=== PATIENT | female | born 1985 | race Caucasian/White ===

== ENCOUNTER 2016-12-06 07:51 | Emergency (ER) | payer OTHER ==
[2016-12-06 08:07] VITALS: BP 136/94
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
== END 2016-12-06 08:55 | disposition home or self-care (01) ==
LOC: ER 07:51
DX: M26.602 Left temporomandibular joint disorder, unspecified (principal); J06.9 Acute upper respiratory infection, unspecified; B97.89 Other viral agents as the cause of diseases classified elsewhere; F17.210 Nicotine dependence, cigarettes, uncomplicated

== ENCOUNTER 2017-02-26 13:26 | Emergency (ER) | payer OTHER ==
[2017-02-26 13:34] VITALS: BP 133/77
[2017-02-26] MEDS ORDERED: ALBUTEROL SULFATE/IPRATROPIUM 3 ML NEBU IH ONE ×2 (13:48→13:50)
--- NOTE | 2017-02-26 13:55 | ERNOTE ---
Date of Service: 02/26/17 Time Seen by Provider: 02/26/17 13:36 Stated Complaint: TROUBLE BREATHING Presenting Symptoms:: cough Source: patient, RN notes reviewed, past records Exam Limitations: no limitations Immunizations: IMMUNIZATION HX Immunizations Up to Date Yes History of Influenza Vaccine Yes Hx Pneumococcal Vaccination No Allergies/Adverse Reactions: Allergies morphine Allergy (Severe, Verified 02/26/17 13:34) Anaphylaxis tramadol Allergy (Verified 02/26/17 13:34) Vomiting Home Medications: HOME MEDICATIONS HYDROcodone/ACETAMINOPHEN [[place] 5-325] 1 tab PO Q4H PRN #30 tab 12/06/16 [Last Taken Unknown] Norgestimate-Ethinyl Estradiol [Trinessa Lo Tablet] 1 each PO DAILY 12/06/16 [ Last Taken Unknown] Albuterol Sulfate 2.5 mg IH Q4H PRN #40 vial.neb 02/26/17 [Last Taken Unknown] Promethazine HCl/Codeine [Prometh-Codein 6.25-10 mg/5 ml] 5 ml PO Q4H PRN #120 ml 02/26/17 [Last Taken Unknown] predniSONE [Prednisone] 2 tab PO DAILY #14 tab 02/26/17 [Last Taken Unknown] - History of Present Ilness Narrative: 31 y/o female ambulatory to the ED for a cough and increasing dyspnea. Her symptoms began about a week and a half ago. She was seen in the clinic on and started on doxycycline for rhinosinusitis and bronchitis. She feels like she has been getting worse since then. She has been taking Nyquil at night. She reports having to use her son's albuterol nebulizer when she started feeling really short of breath. This did seem to help. She denies any fevers. Timing: getting worse Frequency/Possible Cause: Reports: unknown cause Modifying Factors - Improves: Reports: albuterol. Denies: rest, lying down Modifying Factors - Worsens: Denies: activity, coughing, lying down Associated Symptoms: Reports: cough, shortness of breath, wheezing, nasal congestion, nasal drainage, headache. Denies: chest pain/soreness, facial pain , dizziness, lightheadedness, earache, sore throat, fever/chills Prior Treatment: Reports: recently seen, currently on antibiotics Review of Systems - Review of Systems Constitutional: Present: See HPI EYE: Present: no symptoms reported ENT: Present: See HPI Respiratory: Present: See HPI Cardiology: Absent: palpitations, edema Gastrointestinal/Abdominal: Absent: nausea, vomiting, abdominal pain Genitourinary: Absent: other - possible Musculoskeletal: Absent: back pain, muscle pain Skin: Absent: rash, lesions Neurological: Present: headache. Absent: dizziness/light-headedness Endocrine: Present: no symptoms reported Hematologic/Lymphatic: Present: no symptoms reported Psych: Present: no symptoms reported - Patient's Past Medical History Patient History - Medical: Chronic Pain, Other Patient History - Cardiac/Respiratory: No pertinent hx Patient History - Cancer: No Hx of Cancer Patient History - Surgical Procedures: Back Surgery, Other Patient History - Other: None LMP (Calendar): 02/01/17 - Social History Living Situations: home Abuse History: No History of abuse Psych History: No pertinent hx Smoking Status: Current every day smoker Cigarettes Packs Per Day: 0.3 Alcohol Use: none Drug Use: none - Immunizations Immunizations Up to Date: Yes Hx Pneumococcal Vaccination: No History of Influenza Vaccine: Yes Physical Exam - Physical Exam General Appearance: Present: wd/wn, alert, no apparent distress Eye Exam: Normal inspection: bilateral Ears, Nose, Throat: Present: nasal congestion. Absent: abnormal TM (R), abnormal TM (L), sinus pain/drainage, pharyngeal erythema Neck: Present: normal inspection, nontender, supple Respiratory: Present: no respiratory distress, no accessory muscle use, expiration (prolonged), wheezing Cardiovascular/Chest: Present: regular rate, rhythm, no murmur Extremity Exam: Present: normal inspection, no edema Neurological Exam: Present: alert, oriented, normal mood/affect, no motor/ sensory deficits Skin Exam: Present: normal color, warm/dry ED Progress - Results and Orders Patient's Lab Results:: I have reviewed the patient's lab results. - Vital Signs Patient's Vital Signs:: I have reviewed the patient's vital signs. Vital Signs: Vital Signs 02/26/17 13:29 Temperature 36.5 C Pulse Rate 96 Respiratory 12 Rate Blood Pressure 133/77 O2 Sat by Pulse 100 Oximetry - X-Ray X-Ray #1 X-Ray: chest Interpretation: Reviewed by me X-ray Comments: No acute cardiopulmonary process noted - Progress/Reassessment Chief Complaint: Upper Respiratory Symptoms Progress:: Improved Departure - Departure Clinical Impression: Wheezing without diagnosis of asthma Bronchitis, acute Qualifiers: Bronchitis organism: unspecified organism Qualified Code(s): J20.9 - Acute bronchitis, unspecified Disposition: Home self-care Condition: Stable Instructions: Form - Excuse from Work, School, or Physical Activity, Acute Bronchitis Prescriptions: Albuterol Sulfate 2.5 mg IH Q4H PRN #40 vial.neb PRN Reason: Wheezing Promethazine HCl/Codeine [Prometh-Codein 6.25-10 mg/5 ml] 5 ml PO Q4H PRN #120 ml PRN Reason: Cough predniSONE [Prednisone] 2 tab PO DAILY #14 tab
--- OUTSIDE RECORDS SUMMARY | 2017-02-26 14:39 | XMS REPORT | Continuity of Care Document ---
:1985 Author Organization [facility] ([facility]) Address [address] [place] [address] Phone [phone] Care Team Providers Name Role Phone Provider, No-Primary Care Primary Care Provider Unavailable Source Comments This disclosure is being made pursuant to the Care Everywhere program, applicable federal and state laws, and may not contain all informaitonavailable regarding this patient.[facility] ([facility]) Active Allergies and Adverse Reactions Allergen Noted Date Severity Reactions Comments Morphine 02/03/2013 Urticaria (Hives),Angioedema Current Medications Prescription Sig. Disp. Refills Start Date End Date Status IBUPROFEN (IBU-200 PO) Take by mouth. Active HYDROcodone-acetaminophen Take 1 Tab by Active (VICODIN) 5-500 mg per mouth every 6 tablet hours as needed. multivitamins w/ minerals Take 1 Tab by Active (CENTRUM SILVER ULTRA mouth daily. WOMEN'S) tablet multivitamin with Take 1 Tab by Active minerals tablet mouth daily. ACETAMINOPHEN (TYLENOL Take 1,000 mg by Active EXTRA STRENGTH PO) mouth. Active Problems Currently Estimated Date of Delivery Comments Yes No additional problems on file Social History Tobacco Use Types Packs/Day Years Used Date Current Every Day Smoker Cigarettes 0.25 8 Smokeless Tobacco: Never Used Tobacco Cessation:Ready to Quit: Yes Comments:trying to quit Last Filed Vital Signs Vital Sign Reading Time Taken Blood Pressure 127/76 03/08/2013 9:30 AM CDT Pulse 95 03/08/2013 9:30 AM CDT Temperature 36.8 C (98.2 F) 03/08/2013 8:12 AM CDT Respiratory Rate 17 03/08/2013 8:17 AM CDT Height 1.88 m (6' 2") 03/08/2013 8:17 AM CDT Weight 65.772 kg (145 lb) 03/08/2013 8:17 AM CDT Body Mass Index 18.61 03/08/2013 8:17 AM CDT Oxygen Saturation - - Plan of Care Health Maintenance Due Date Last Done Comments Hepatitis B Vaccine (1 of 3 - Primary Series) 1987 Tdap Vaccine 1998 Cervical Cancer Screening 2005 Lipid Disorder Screening 2005 MMR Vaccine 2005 Td Vaccine 2005 Varicella Vaccine (1 of 2 - Adult - No Evidence of 2005 Immunity) Pneumococcal Vaccine (1 of 1 - PPSV23) 2006 Influenza Vaccine: Seasonal (#1) 06/03/2016 Results from Last 3 Months Not on file
== END 2017-02-26 14:25 | disposition home or self-care (01) ==
LOC: ER 13:26
DX: J20.9 Acute bronchitis, unspecified (principal); R06.2 Wheezing; F17.210 Nicotine dependence, cigarettes, uncomplicated

== ENCOUNTER 2017-04-01 16:30 | Emergency (ER) | payer OTHER ==
[2017-04-01 16:50] LABS: Hematocrit 38.1 % (37.0-47.0); Mean Cell Volume 92.7 fl (78-100); Mean Corpuscular Hemoglobin 31.6 pg (27-31); Mean Corpuscular Hgb Conc 34.1 g/dl (32-36); Mean Platelet Volume 9.9 fl (6.0-9.5); Platelet Count 230 K/mm3 (150-450); Red Blood Count 4.11 M/mm3 (4.2-5.4); Red Cell Distribution Width 12.6 % (11.5-14.0); White Blood Count 25.9 K/mm3 (4.0-10.5)
[2017-04-01 16:55] LABS: Total Cells Counted 100
[2017-04-01 17:02] LABS: Atypical (Reactive) Lymph 2 % (0-2); Lymphocyte 7 % (20-51); Monocyte 1 % (0-9); Neutrophil 90 % (42-75); Neutrophil # 23.3 K/mm3 (1.3-6.0); Platelet Estimate Normal (NORMAL); RBC Morphology Normal (NORMAL)
[2017-04-01] MEDS ORDERED: HYDROcodone/ACETAMINOPHEN 1 EACH TABLET PO ONE ×2 (18:47→20:14)
[2017-04-01 19:00] LABS: Albumin * 3.4 gm/dl (3.4-5.0); Anion Gap 13.1 mmol/L (6.8-13.8); BUN/Creatinine Ratio 7.7 (9.0-21.6); Bilirubin, Total 0.6 mg/dL (0.0-1.1); Ca. Corrected For Albumin 8.7 mg/dL (8.4-10.2); Calcium * 8.5 mg/dL (7.9-10.9); Carbon Dioxide 27.2 mmol/L (24-32.6); Potassium 3.3 mmol/L (3.4-4.6); Total Protein 7.5 gm/dL (6.2-8.2)
[2017-04-01] MEDS ORDERED: HYDROcodone/ACETAMINOPHEN 1 EACH TABLET ONE ×2 (19:00→20:18)
[2017-04-01 19:46] LABS: Urine Bilirubin Negative (NEGATIVE); Urine Blood 25 /ul (NEGATIVE); Urine Ketone Negative (NEGATIVE); Urine Nitrite Negative (NEGATIVE); Urine Protein Negative (NEGATIVE); Urine Specific Gravity <=1.005 SP.GR. (1.005-1.010); Urine Urobilinogen Normal (NORMAL); Urine pH 6.5 pH (5.0-7.0)
--- NOTE | 2017-04-01 19:46 | ERNOTE ---
ER Female HPI Date of Service: 04/01/17 Stated Complaint: POSS KIDNEY STONE Presenting Symptoms: other - Flank pain Time Seen by Provider: 04/01/17 18:37 Source: patient, RN notes reviewed, past records Exam Limitations: no limitations Immunizations: IMMUNIZATION HX Immunizations Up to Date Yes History of Influenza Vaccine No Hx Pneumococcal Vaccination No Allergies/Adverse Reactions: Allergies morphine Allergy (Severe, Verified 04/01/17 16:37) Anaphylaxis tramadol Allergy (Verified 04/01/17 16:37) Vomiting Home Medications: HOME MEDICATIONS Norgestimate-Ethinyl Estradiol [Trinessa Lo Tablet] 1 each PO DAILY 12/06/16 [ Last Taken Unknown] Ciprofloxacin HCl [Cipro] 500 mg PO BID #20 tablet 04/01/17 [Last Taken Unknown] HYDROcodone/ACETAMINOPHEN [[place] 5-325] 1 - 2 tab PO Q6H PRN #16 tab 04/01/17 [ Last Taken Unknown] Ondansetron [Zofran Odt] 8 mg PO Q8H PRN #12 tab 04/01/17 [Last Taken Unknown] - History of Present Illness Narrative: 31 y/o female sent to the ED from the walk-in clinic for a possible kidney stone. She has been having bilateral flank pain for the past 2 days and was found to have blood in her urine in the clinic. She also reports having chills and nausea. She has not had any urinary symptoms, but did notice that her urine looked darker than usual. She has been taking leftover [place] for pain. Timing: Present: constant Quality: Present: aching Onset Location: Present: right flank, left flank Radiation: Present: none Activities at Onset: Present: none Prior Abdominal Problems: Present: similar symptoms - Hx pyelonephritis Associated Symptoms: Present: fever/chills, nausea, low back pain. Absent: diaphoresis, vomiting, abdominal pain, dysuria, urinary frequency Prior Treatment: Present: recently seen Review of Systems - Review of Systems Constitutional: Present: recent illness, fever, chills, malaise EYE: Present: no symptoms reported ENT: Absent: ear pain, nose congestion, sore throat Respiratory: Present: cough. Absent: shortness of breath, wheezing Cardiology: Absent: chest pain, palpitations Gastrointestinal/Abdominal: Present: nausea, eating less, drinking less. Absent : vomiting, diarrhea, abdominal pain Genitourinary: Absent: frequency, dysuria, discharge Musculoskeletal: Present: back pain. Absent: joint pain Skin: Absent: rash, lesions, lumps Neurological: Present: headache. Absent: dizziness/light-headedness Endocrine: Present: no symptoms reported Hematologic/Lymphatic: Present: no symptoms reported Psych: Present: no symptoms reported - Patient's Past Medical History Patient History - Medical: Chronic Pain Patient History - Cardiac/Respiratory: No pertinent hx Patient History - Cancer: No Hx of Cancer Patient History - Surgical Procedures: Back Surgery, Other Patient History - Other: None LMP (females 10-50): 3 weeks LMP (Calendar): 03/03/17 - Social History Living Situations: home Abuse History: No History of abuse Psych History: No pertinent hx Smoking Status: Current every day smoker Alcohol Use: none Drug Use: none - Immunizations Immunizations Up to Date: Yes Hx Pneumococcal Vaccination: No History of Influenza Vaccine: No Physical Exam - Physical Exam General Appearance: Present: wd/wn, alert, no apparent distress Neck: Present: normal inspection, nontender, supple, full range of motion Respiratory: Present: no respiratory distress, normal breath sounds, no accessory muscle use, lungs clear Cardiovascular/Chest: Present: no murmur, normal peripheral pulses, tachycardia Gastrointestinal/Abdominal: Present: normal bowel sounds, nontender, nondistended, soft. Absent: rebound, mass Back Exam: Present: no vertebral tenderness, CVA tenderness (R), CVA tenderness (L), decreased range of motion Extremity Exam: Present: normal inspection, normal range of motion, no edema Neurological Exam: Present: alert, oriented, normal mood/affect, no motor/ sensory deficits Skin Exam: Present: normal color, warm/dry Lymphatic Exam: Present: no adenopathy ED Progress - Results and Orders Patient's Lab Results:: I have reviewed the patient's lab results. - Vital Signs Patient's Vital Signs:: I have reviewed the patient's vital signs. Vital Signs: Vital Signs 04/01/17 04/01/17 16:34 19:31 Temperature 37.8 C H Pulse Rate 121 H 107 H Respiratory 17 16 Rate Blood Pressure 126/75 145/75 O2 Sat by Pulse 100 95 Oximetry - Progress/Reassessment Chief Complaint: Genitourinary Problem Progress:: Unchanged Plan - Plan Plan: Urine remarkable only for blood on dip but not on micro. WBC elevated at 25.9 and patient is febrile. Was on a steroid approximately a month ago but unlikely her leukocytosis is d/t this. Reports an occasional ongoing cough after she was treated for bronchitis but it is not frequent or persistent. Abdomen is benign. Will treat for pyelonephritis d/t fever and flank pain. Discussed short term f/ u for lack of improvement, patient in agreement with plan. Departure Clinical Impression: Flank pain, acute Fever Qualifiers: Fever type: unspecified Qualified Code(s): R50.9 - Fever, unspecified - Departure Disposition: Home Follow Up Needed Condition: Stable Instructions: Pyelonephritis, Adult, Form - Excuse from Work, School, or Physical Activity Additional Instructions: Push fluids Rest Tylenol (if not taking [place]) and/or ibuprofen for fever Return for new or worsening symptoms Referrals: Juli Corona [Primary Care Provider] - Prescriptions: Ciprofloxacin HCl [Cipro] 500 mg PO BID #20 tablet HYDROcodone/ACETAMINOPHEN [[place] 5-325] 1 - 2 tab PO Q6H PRN #16 tab PRN Reason: Pain Ondansetron [Zofran Odt] 8 mg PO Q8H PRN #12 tab PRN Reason: Nausea
[2017-04-01 19:47] LABS: Urine Appearance Clear; Urine Bacteria None Seen; Urine Color Yellow; Urine RBC None Seen /hpf (0-5); Urine WBC None Seen /hpf (0-5)
[2017-04-01] MEDS ORDERED: ONDANSETRON 4 MG TAB.RAPDIS PO ONE (20:14)
[2017-04-01] MEDS ORDERED: CIPROFLOXACIN HCL 250 MG TABLET PO ONE (20:14)
[2017-04-01 20:16] VITALS: BP 138/82
[2017-04-01] MEDS ORDERED: ONDANSETRON HCL 8 MG TABLET ONE (20:19)
[2017-04-01] MEDS ORDERED: CIPROFLOXACIN HCL 250 MG TABLET ONE (20:19)
--- OUTSIDE RECORDS SUMMARY | 2017-04-02 11:10 | XMS REPORT | Continuity of Care Document ---
:1985 Author Organization [facility] ([facility]) Address [address] [place] [address] Phone [phone] Care Team Providers Name Role Phone Provider, No-Primary Care Primary Care Provider Unavailable Source Comments This disclosure is being made pursuant to the Care Everywhere program, applicable federal and state laws, and may not contain all informaitonavailable regarding this patient.[facility] ([facility]) Active Allergies and Adverse Reactions [...]
== END 2017-04-01 20:15 | disposition home or self-care (01) ==
LOC: ER 16:30
DX: R50.9 Fever, unspecified (principal); Z72.0 Tobacco use

== ENCOUNTER 2018-07-15 05:06 | Inpatient (IN) ==
--- NOTE | 2018-07-14 16:56 | HP ---
Chief Complaint - Chief Complaint Date of Service: 07/14/18 Time of Service: 16:43 Chief Complaint: Attempt external cephalic version, c/s if unsuccessful History of Present Illness: 33 yo who will be 39 1/7 wks at time of admission for external cephaic version and primary section if unsuccessful version. Patient is very worried about external cephalic version (ECV) but desires to try ECV on the OR table so if something happens we can quickly proceed with emergent c/s. If ECV successful, patient will be transferred back to L&D to labor. This complicated by breech presentation, smoker, 1st trimester UDS positive for opiates. Rh positive Rubella immune GBS negative Medical History (Last Reviewed 07/14/18 @ 16:51 by Kemar Mckoy DO) Anemia affecting (Acute) Onset Date: 04/2018 Cold intolerance Onset Date: 09/07/15 Fatigue Onset Date: 09/07/15 Migraine Onset Date: 2016 Bacterial vaginitis Onset Date: 09/07/15 Hematuria Onset Date: 09/07/15 Vaginal discharge Onset Date: 07/14/13 Abnormal Pap smear of cervix Onset Date: ~2005 Pneumothorax, traumatic Onset Date: 2001 Surgical History: Surgical History (Last Reviewed 07/14/18 @ 16:51 by Kemar Mckoy DO) History of open reduction and internal fixation (ORIF) procedure Onset Date: 2010 Hx of neck surgery Onset Date: 2001 Family History: Family History (Last Reviewed 07/14/18 @ 16:51 by Kemar Mckoy DO) Mother Breast cancer, Onset Age: 23 Father Abdominal aneurysm Popliteal aneurysm Aunt Lymphoma Grandfather Brain aneurysm Grandmother Cancer Social History: Preferred Language Urugu[place] Abuse History No History of abuse Psych History No pertinent hx Review Of Systems (GEN) - Review of Systems EENTM: Present: No Symptoms Reported Respiratory: Present: No Symptoms Reported Cardiac: Present: No Symptoms Reported Abdominal: Present: No Symptoms Reported Genitourinary: Present: No Symptoms Reported Musculoskeletal: Present: No Symptoms Reported Neurological: Present: No Symptoms Reported Skin: Present: No Symptoms Reported Endocrine: Present: No Symptoms Reported Immunizations: IMMUNIZATION HX Immunizations Up to Date Yes History of Influenza Vaccine No Hx Pneumococcal Vaccination No Allergies/Adverse Reactions: Allergies Allergy/AdvReac Type Severity Reaction Status Date / Time morphine Allergy Severe Anaphylaxis Verified 07/09/18 10:59 tramadol Allergy Vomiting Verified 07/09/18 10:59 Home Medications: HOME MEDICATIONS ferrous sulfate 325 mg (65 mg iron) tablet 325 mg PO BID tab 05/06/18 [Last Taken Unknown] vitamin,calcium,dwqfshtx-rgxd-[id number] acid tablet 1 tab PO DAILY [Last Taken Unknown] Exam - Exam Vital Signs: T 35.8c, P 67, R 18, BP 129/88, Ht 1.86m, Wt 93.5kg, O2 99% on RA Constitutional: Present: Alert, Oriented x3, Cooperative ENT Exam: Present: hearing grossly normal Respiratory: Present: lungs clear, no respiratory distress Cardiovascular/Chest: Present: regular rate, rhythm Abdomen: Present: soft, nontender, other - gravid /Rectal: Present: Exam deferred Extremity: Present: no pedal edema, no calf tenderness Skin Exam: Present: normal color, warm/dry, no cyanosis Neurologic: Present: alert, normal mood/affect, oriented x 3 Appearance: Present: appropriate appearance, appropriate insight Eye contact: Present: cooperative, good eye contact, normal speech Thoughts: Present: normal thought pattern Assessment/Plan - Assessment/Plan (1) Breech presentation Assessment: r/b/a to external cephalic version and section discussed with patient in detail. Plan is to place anesthesia and attempt ECV on the OR table. If successful will transfer back to L&D for labor induction, otherwise proceed with primary low transverse section. Problem: Acute Qualifiers: Fetus number: single or unspecified fetus Qualified Code(s): O32.1XX0 - Maternal care for breech presentation, not applicable or unspecified
[2018-07-15] MEDS ORDERED: ceFAZolin SODIUM/DEXTROSE,ISO 2 GM/50 ML BAG IV PRN (06:00)
[2018-07-15] MEDS ORDERED: RINGER'S SOLUTION,LACTATED 1,000 ML IV PRN ×2 (06:00)
[2018-07-15] MEDS ORDERED: OXYTOCIN 20 UNITS in RINGER'S SOLUTION,LACTATED 1,000 ML IV ONE (07:33)
--- NOTE | 2018-07-15 09:33 | OR ---
Operative Report - Dictated Report Narrative: Indication: 33-year-old 2 para 1 at 39-1/7 weeks presents for primary low transverse section due to fetus in breech presentation. Patient declined vaginal breech delivery or trial of external cephalic version. Status: Planned Pre Operative Diagnosis: 39-1/7 week intrauterine . Byron breech presentation of fetus. Post Operative Diagnosis: Same. Nuchal cord 1 Procedure Preformed: Primary Low Transverse Section Surgeon: Lurdes Mckoy DO Restoration Technician: OR Staff Anesthesia: Spinal ,TAP block Estimated Blood Loss: 800 mL Urine Output: 50 mL Fluids Given: 1200 mL Drains: Bailon to gravity Surgical Complications: None Specimens: Placenta to freezer Findings: Male born at 0824 on 07/15/2016 in byron breech presentation with Apgars 8 and 9, weighing 4126 g. Nuchal cord 1. Normal uterus, tubes, ovaries. Large varicose veins were noted along the broad ligament on either side of the uterus. Technique: The patient was taken to the operating room and placed in dorsal supine position with a left lateral tilt. After adequate spinal anesthesia, bailon catheter insertion,SCDs placed, and 2 g of Ancef given preoperatively, the abdominal cavity was entered via a modified Praksah-Vaughn incision. Two rolled laps were placed in the pericolic gutters on either side of the uterus. A transverse incision was made in the lower uterine segment and extended laterally and upwardly with digital traction. Clear fluid was noted upon amniotomy. The infant was delivered easily, buttocks first, then aft coming legs and arms and head. Nuchal cord was easily reduced. The infant was warmed and dried. The cord was clamped and cut after approximately 1 minute and infant was handed off to awaiting donor relations officer. The placenta was allowed to deliver spontaneously. The uterus was cleared of clot and debris. Uterine incision was closed with 0 Vicryl using a running stitch. A second imbricating layer was placed. Bleeding in the midline was controlled with a single figure- of-eight 0 Vicryl suture. Excellent hemostasis was noted. Rolled laps were removed from the abdominal cavitiy. The peritoneum was closed with a running 3- 0 Monocryl. The same suture was used to approximate the rectus and pyramidalis muscles. The fascia was closed with a running 0 Vicryl. The subcutaneous layer was closed with a running 3-0 Monocryl. The same suture was used to approximate the subdermal layer. The skin was closed with a running 4-0 Monocryl and Dermabond. Sponge, lap, needle, and instrument count were correct x 2. Disposition: The patient was transferred to post anesthesia care unit in good condition History for MU Definition: * The number of deliveries resulting in a live the patient experienced prior to current hospitalization * The previous delivery of live twins or any live multiple gestation is considered one live event. *If primagravida or nulliparous is documented select zero for the number of previous live births. Live Events: 1
--- NOTE | 2018-07-15 09:43 | ANES ---
Anesthesia Pre Procedure Eval Vitals/Labs: Last Vital Signs Temp 36.7 C 07/15/18 09:15 Pulse 72 07/15/18 09:30 Resp 13 07/15/18 09:30 BP 131/76 07/15/18 09:30 Pulse Ox 96 07/15/18 09:30 HOME MEDICATIONS ferrous sulfate 325 mg (65 mg iron) tablet 325 mg PO BID tab 05/06/18 [Last Taken Unknown] vitamin,calcium,nxxucxom-anlk-snxgb acid tablet 1 tab PO DAILY [Last Taken Unknown] Allergies/Adverse Reactions: Allergies Allergy/AdvReac Type Severity Reaction Status Date / Time morphine Allergy Severe Anaphylaxis Verified 07/15/18 06:06 tramadol Allergy Vomiting Verified 07/15/18 06:06 - Planned Procedure Planned Procedure: Section for breech presentation Medication List Reviewed:: Yes Allergies Verified: Yes Medical History (Last Reviewed 07/15/18 @ 09:42 by Constantino Ravi CRNA) Anemia affecting (Acute) Onset Date: 04/2018 Cold intolerance Onset Date: 09/07/15 Fatigue Onset Date: 09/07/15 Migraine Onset Date: 2016 Bacterial vaginitis Onset Date: 09/07/15 Hematuria Onset Date: 09/07/15 Vaginal discharge Onset Date: 07/14/13 Abnormal Pap smear of cervix Onset Date: ~2005 Pneumothorax, traumatic Onset Date: 2001 Surgical History (Last Reviewed 07/15/18 @ 09:42 by Constantino Ravi CRNA) History of open reduction and internal fixation (ORIF) procedure Onset Date: 2010 Hx of neck surgery Onset Date: 2001 Family History (Last Reviewed 07/15/18 @ 09:42 by Constantino Ravi CRNA) Mother Breast cancer, Onset Age: 23 Father Abdominal aneurysm Popliteal aneurysm Aunt Lymphoma Grandfather Brain aneurysm Grandmother Cancer - Family Anesthesia History Family History:: no untoward family reactions to anesthesia - Airway/Neck/Teeth Within Normal Limits:: Yes Teeth Condition: Intact Mallampatti Score: 2 Thyromental (T-M) distance: > 6 cm Mandibulo Hyoid distance: > 3 cm - Respiratory Respiratory: lungs clear, normal breath sounds Smoking Status: Current every day smoker Discussed smoking cessation including day of surgery: Yes Sleep Apnea currently treated: No Sleep Apnea by current assessment: No - Cardiovascular Patient History - Cardiac/Respiratory: No pertinent hx Tolerates Activity: Good Heart Sounds: S1 & S2, Regular - Anesthesia Assessment and Plan ASA Class: PS, II Anesthesia Type Plan: Spinal - bilat tap block for postop analgesia
--- NOTE | 2018-07-15 09:44 | ANES ---
Post Anesthesia Discharge - Transfer of Care Transfer of Care handoff given to nurse: Yes - Discharge from PACU Discharge from PACU when meets criteria: Yes
--- NOTE | 2018-07-15 10:07 | ANES ---
Anesthesia Procedure Note Procedure Note: ANESTHESIA PROCEDURE NOTE Date of procedure: 07/15/2018. Time of procedure:[]. 08 02 Performed by: Brad Ravi CRNA Loan Reviewer: [] Darlene Garcia RN . Preprocedure diagnosis: []. Status post section. Desire for postoperative analgesia. Post procedure diagnosis: Same. Procedure:[] Ultrasound-guided bilateral tap block Indications: []. Postoperative analgesia Findings: [] Patient in a supine position and PACU. Patient's right lateral abdominal wall prepped with ChloraPrep. Ultrasound utilized to identify the fascial layer between the internal oblique and trans-abdominus muscles. A 20- gauge 4 inch Stimuplex regional block needle was advanced under ultrasound guidance until tip of needle was located just distal to fascial layer. A total of 20 mL of 0.25% Marcaine with epinephrine 1 200,000 was injected with adequate spread of local anesthesia noted. Procedure was then repeated on patient's left side. EBL: Minimal. Fluids: N/A. Specimen: N/A. Post procedure condition: The patient tolerated the procedure well. No complications were noted. Thank you for this consultation Brad Ravi CRNA
--- NOTE | 2018-07-15 10:08 | ANES ---
Post Anesthesia Assessment - Vital Signs Vitals: Last Vital Signs Temp 36.6 C 07/15/18 09:45 Pulse 64 07/15/18 09:45 Resp 14 07/15/18 09:45 BP 108/78 07/15/18 09:45 Pulse Ox 99 07/15/18 09:45 Airway Patency: Normal - Mental Status Level Of Consciousness: Awake - Pain Level Pain Score: 5 - N/V Assessment Nausea/Vomiting Presence: None Dehydration:: No
[2018-07-15] MEDS ORDERED: oxyCODONE HCL/ACETAMINOPHEN 1 TAB TABLET PO PRN (10:17)
[2018-07-15] MEDS ORDERED: ONDANSETRON HCL/PF 2 MG/ML VIAL IV PRN (10:17)
[2018-07-15] MEDS ORDERED: SIMETHICONE 80 MG TAB.CHEW PO PRN (10:17)
[2018-07-15] MEDS ORDERED: BISACODYL 10 MG SUPP.RECT RC PRN (10:17)
[2018-07-15] MEDS ORDERED: SENNOSIDES 8.6 MG TABLET PO PRN (10:17)
[2018-07-15] MEDS ORDERED: KETOROLAC TROMETHAMINE 30 MG/ML VIAL IV ONE (10:36)
[2018-07-15] MEDS ORDERED: hydrOXYzine PAMOATE 50 MG CAPSULE PO ONE (13:00)
[2018-07-15 13:27] LABS: Cocaine Ur Negative (NEGATIVE); Urine Barbiturate Negative (NEGATIVE); Urine Benzodiazepines Negative (NEGATIVE); Urine Opiates Positive (NEGATIVE); Urine PCP Negative (NEGATIVE); Urine THC Negative (NEGATIVE)
[2018-07-15] MEDS: oxyCODONE HCL/ACETAMINOPHEN 1 TAB TABLET PO PRN ×3 (14:50→21:14)
[2018-07-15] MEDS: ENOXAPARIN SODIUM 40 MG/0.4 ML SYRG SC SCH (16:59)
[2018-07-15] MEDS: IBUPROFEN 800 MG TABLET PO PRN ×2 (16:59→23:09)
[2018-07-15] MEDS: DOCUSATE SODIUM 100 MG CAPSULE PO SCH (21:14)
[2018-07-16] MEDS: oxyCODONE HCL/ACETAMINOPHEN 1 TAB TABLET PO PRN ×8 (00:53→23:09)
[2018-07-16] MEDS: IBUPROFEN 800 MG TABLET PO PRN ×3 (07:28→20:10)
[2018-07-16] MEDS: DOCUSATE SODIUM 100 MG CAPSULE PO SCH ×3 (07:29→20:57)
--- NOTE | 2018-07-16 08:29 | PN ---
Subjective - Date and Time Seen Date: 07/16/18 Time: 08:26 Objective - Vitals Vitals: Last Vital Signs Temp 36.8 C 07/16/18 04:47 Pulse 77 07/16/18 04:47 Resp 18 07/16/18 04:47 BP 134/87 07/16/18 05:14 Pulse Ox 97 07/16/18 04:47 Patient denies complaints. Tolerating regular diet. Ambulating without difficulty. Pain well controlled. Lochia wnl. Abdomen - soft, appropriately tender Incision - clean, dry, intact Uterus - firm, at umbilicus -1 No calf tenderness, 3+ pitting edema to the knees, DTR-2/ 4, no clonus Impression: Post op day #1 s/p primary section for breech presentation. Elevated blood pressures many in severe range-probably due to social situation; will evaluate for preeclampsia. Plan: SCDs, preeclamptic labs, - Abnormal Lab Findings Abnormal Lab Findings: Abnormal Lab Results 07/15/18 Range/Units Unknown Urine Opiates Screen Positive H (NEGATIVE) Cauti Physician Documentation - Urinary Catheter Management Urethral ([place]) Date of Insertion: 07/15/18 Time of Insertion: 08:15 Assessment/Plan - Problems/Diagnosis (1) Breech presentation Problem: Acute Qualifiers: Fetus number: single or unspecified fetus Qualified Code(s): O32.1XX0 - Maternal care for breech presentation, not applicable or unspecified
[2018-07-16 08:39] LABS: Hematocrit 29.4 % (37.0-47.0); Hemoglobin 9.7 gm/dL (12.5-16.0); Mean Cell Volume 103.9 fl (78-100); Mean Corpuscular Hemoglobin 34.3 pg (27-31); Mean Platelet Volume 10.5 fl (8-12.5); Neutrophil # 7.4 K/mm3 (1.3-6.0); Neutrophil % 82.5 % (42-75.0); Platelet Count 146 K/mm3 (150-450); Red Blood Count 2.83 M/mm3 (4.2-5.4); Red Cell Distribution Width 13.4 % (11.5-14.0)
[2018-07-16 08:48] LABS: Albumin * 2.2 gm/dl (3.4-5.0); Anion Gap 10.8 mmol/L (6.8-13.8); BUN/Creatinine Ratio 8.2 (9.0-21.6); Bilirubin, Total 0.3 mg/dL (0.0-1.1); Ca. Corrected For Albumin 8.8 mg/dL (8.4-10.2); Calcium * 7.7 mg/dL (7.9-10.9); Potassium 3.8 mmol/L (3.4-4.6); Total Protein 5.1 gm/dL (6.2-8.2)
[2018-07-16 09:19] LABS: Random Urine Total Protein 20.4 mg/dL (0-12)
[2018-07-16] MEDS: ENOXAPARIN SODIUM 40 MG/0.4 ML SYRG SC SCH (16:42)
[2018-07-16] MEDS ORDERED: hydrOXYzine PAMOATE 50 MG CAPSULE PO PRN (17:08)
[2018-07-17] MEDS: IBUPROFEN 800 MG TABLET PO PRN ×4 (02:36→21:09)
[2018-07-17] MEDS: oxyCODONE HCL/ACETAMINOPHEN 1 TAB TABLET PO PRN ×7 (02:37→21:09)
[2018-07-17] MEDS: DOCUSATE SODIUM 100 MG CAPSULE PO SCH ×2 (08:33→21:09)
--- NOTE | 2018-07-17 12:08 | PN ---
Subjective - Date and Time Seen Date: 07/17/18 Time: 12:04 Objective - Vitals Vitals: Last Vital Signs Temp 37 C 07/17/18 06:35 Pulse 81 07/17/18 06:35 Resp 16 07/17/18 06:35 BP 153/93 H 07/17/18 09:44 Pulse Ox 97 07/17/18 06:35 Patient denies complaints. Ambulating well. Tolerating regular diet. Pain well controlled. Lochia wnl. Abdomen - soft, appropriately tender Incision - clean, dry, intact Uterus - firm, at umbilicus -2 No calf tenderness, DTR-2/4 with no clonus, 3+ pitting edema of lower extremities Impression: Post op day #2 s/p primary section. Mild preeclampsia bordering on severe preeclampsia Plan: Continue routine post-operative/ care and careful observation. If pressures reach severe range we'll start magnesium and antihypertensives. Cauti Physician Documentation - Urinary Catheter Management Urethral ([place]) Date of Insertion: 07/15/18 Time of Insertion: 08:15 Assessment/Plan - Problems/Diagnosis (1) Breech presentation Problem: Acute Qualifiers: Fetus number: single or unspecified fetus Qualified Code(s): O32.1XX0 - Maternal care for breech presentation, not applicable or unspecified
[2018-07-17] MEDS: ENOXAPARIN SODIUM 40 MG/0.4 ML SYRG SC SCH (16:40)
[2018-07-17] MEDS ORDERED: hydrOXYzine PAMOATE 25 MG CAPSULE PO PRN (21:15)
[2018-07-18] MEDS: oxyCODONE HCL/ACETAMINOPHEN 1 TAB TABLET PO PRN ×4 (00:46→11:27)
[2018-07-18] MEDS: IBUPROFEN 800 MG TABLET PO PRN ×2 (03:21→09:29)
[2018-07-18 08:50] LABS: Hematocrit 30.7 % (37.0-47.0); Hemoglobin 10.1 gm/dL (12.5-16.0); Mean Cell Volume 103.7 fl (78-100); Mean Corpuscular Hemoglobin 34.1 pg (27-31); Mean Corpuscular Hgb Conc 32.9 g/dl (32-36); Mean Platelet Volume 10.7 fl (8-12.5); Neutrophil # 5.1 K/mm3 (1.3-6.0); Neutrophil % 70.8 % (42-75.0); Platelet Count 210 K/mm3 (150-450); Red Blood Count 2.96 M/mm3 (4.2-5.4); Red Cell Distribution Width 13.2 % (11.5-14.0); White Blood Count 7.2 K/mm3 (4.0-10.5)
[2018-07-18 09:05] LABS: Albumin * 2.4 gm/dl (3.4-5.0); Anion Gap 7.6 mmol/L (6.8-13.8); BUN/Creatinine Ratio 8.5 (9.0-21.6); Bilirubin, Total 0.4 mg/dL (0.0-1.1); Ca. Corrected For Albumin 9.1 mg/dL (8.4-10.2); Calcium * 8.1 mg/dL (7.9-10.9); Carbon Dioxide 30.1 mmol/L (24-32.6); Potassium 3.7 mmol/L (3.4-4.6); Total Protein 5.9 gm/dL (6.2-8.2)
[2018-07-18] MEDS: DOCUSATE SODIUM 100 MG CAPSULE PO SCH (09:29)
--- NOTE | 2018-07-18 09:32 | PN ---
Subjective - Date and Time Seen Date: 07/18/18 Time: 09:26 Objective - Vitals Vitals: Last Vital Signs Temp 36.8 C 07/18/18 07:03 Pulse 64 07/18/18 07:03 Resp 16 07/18/18 07:03 BP 160/92 H 07/18/18 09:05 Pulse Ox 97 07/18/18 07:03 Patient denies complaints - specifically denies headache, visual changes, epigastric pain. Ambulating without difficulty. Tolerating regular diet. Pain well controlled. Lochia wnl. Bottle feeding Blood pressures remain in the 140s to 150s over 80s and 90s with occasional systolic blood pressures in the 160s. Abdomen - soft, appropriately tender Incision - clean, dry, intact Uterus - firm, at umbilicus -3 No calf tenderness, DTR-2/4, 2+ pitting edema to the knees, no clonus Weight continues to drop approximately 2 kg per day. CBC and CMP within normal limits other than mild anemia Impression: Post op day #3 s/p primary section for breech presentation. Preeclampsia - slowly resolving. Plan: We'll start on low-dose antihypertensive. Preeclampsia precautions. Follow-up in 3 days for blood pressure check. Routine discharge instructions - Abnormal Lab Findings Abnormal Lab Findings: Abnormal Lab Results 07/18/18 07/18/18 Range/Units 08:44 08:44 RBC 2.96 L (4.2-5.4) M/mm3 Hgb 10.1 L (12.5-16.0) gm/dL Hct 30.7 L (37.0-47.0) % MCV 103.7 H (78-100) fl MCH 34.1 H (27-31) pg Eosinophils % 3.3 H (0.0-3.0) % BUN/Creatinine Ratio 8.5 L (9.0-21.6) Total Protein 5.9 L (6.2-8.2) gm/dL Albumin 2.4 L (3.4-5.0) gm/dl Cauti Physician Documentation - Urinary Catheter Management Urethral ([place]) Date of Insertion: 07/15/18 Time of Insertion: 08:15 Assessment/Plan - Problems/Diagnosis (1) Breech presentation Problem: Acute Qualifiers: Fetus number: single or unspecified fetus Qualified Code(s): O32.1XX0 - Maternal care for breech presentation, not applicable or unspecified
[2018-07-18] MEDS ORDERED: NIFEdipine 30 MG TAB.SR.24H PO SCH (09:45)
[2018-07-18 11:22] VITALS: BP 144/94
== END 2018-07-18 12:00 | disposition home or self-care (01) | DRG 766 ==
LOC: OB 05:06
PROVIDERS: ADMIT Obstetrics & Gynecology; ATTEND Obstetrics & Gynecology
CPT/HCPCS: 36415; 59025; 80053; 80307; 82570; 84155; 84156; 85025; G0479